=== PATIENT | male | born 1965 | race Caucasian/White ===

== ENCOUNTER → 2016-05-29 | Outpatient (CLI) | payer OTHER ==
[2016-05-29 18:26] LABS: Blood Urea Nitrogen 18 mg/dL (9-20); Non-African American GFR(MDRD) >60 (>60 ml/min/1.73 sqM)
[2016-05-29 18:56] LABS: Prostate Specific Antigen 2.89 ng/mL (0.00-4.00)
--- NOTE | 2016-05-30 07:58 | CT ---
EXAMINATION TYPE: CT urogram wo/w con DATE OF EXAM: 05/29/2016 7:25 PM COMPARISON: NONE HISTORY: hematuria CT DLP: 1176.5 mGycm Automated exposure control for dose reduction was used. CONTRAST: Performed with IV Contrast, patient injected with 100 mL of Omnipaque 350. Technique: Axial images 5 mm thick sections. Reconstructed images in the coronal and sagittal plane. Three-D reconstructed imag es performed separately on the [employer] computer were performed by the technologist. FINDINGS: Limited CT sections are obtained lung bases. There is a 6 mm calcific density within the peripheral l eft lung base series 5 image 15. Some compressive atelectasis may be in the dependent right lung base . Note is made of some calcified granuloma in the left infrahilar and subcarinal regions within the f [id number]. The ascending thoracic aorta at the level of the main pulmonary artery is 3.5 cm. The m ain pulmonary artery at the bifurcation is 3.[address] ABDOMEN: The liver and spleen and pancreas have a normal density without discrete masses or cysts. Gallbladder is unremarkable. There is a periumbilical hernia containing mesenteric fat with an openi ng 1.6 cm at the abdominal wall. Vascular calcifications within the aorta. The inferior vena cava is normal. The adrenal glands are normal. Precontrast imaging of the kidneys appears normal. Postcontrast and delayed images through the kidney s likewise appear normal without masses or hydronephrosis. Noncontrast imaging There is a 1.1 cm ante rior left mid renal cyst measuring 30 Hounsfield units. Loops of bowel are evaluated without contrast. There is a left inguinal hernia containing a loop of c olon. A fat-containing right inguinal hernia is present. Urinary bladder appears normal. No filling d efects are evident. The right ureteral jet is identified. Prostate appears prominent. The appendix is not identified. Renal collecting systems appear normal. No hydronephrosis is evident. No filling defects are evident . IMPRESSION: NO SUSPICIOUS ETIOLOGY TO ACCOUNT FOR HEMATURIA ON THE CT EXAMINATION. CT UROGRAM APPEARS NORMAL. 2. LEFT INGUINAL HERNIA CONTAINING A LOOP OF COLON. 3. SMALL FAT-CONTAINING RIGHT INGUINAL HERNIA. 4. LEFT RENAL CYST.
== END | disposition home or self-care (01) ==
LOC: RADCTMAIN 17:40
PROVIDERS: ATTEND Urology
DX: N28.1 Cyst of kidney, acquired (principal); K40.20 Bilateral inguinal hernia, without obstruction or gangrene, not specified as recurrent
CPT/HCPCS: 84153; 82565; 84520; 74178; 36415; 74400; Q9967